=== PATIENT | male | born 1980 | race Caucasian/White ===

== ENCOUNTER 2022-03-29 10:17 | Emergency (ER) | payer OTHER ==
[2022-03-29 11:48] LABS: #Eosinphils 0.3 10x3/uL (0.0-0.5); #Monocytes 0.6 10x3/uL (0.0-1.1); #Neutrophils 5.2 10x3/uL (1.5-8.4); %Basophils 0.5 % (0.0-2.0); %Eosinophils 3.3 % (0.0-6.0); %Lymphocytes 20.6 % (18.0-47.0); %Monocytes 7.5 % (0.0-10.0); %Neutrophils 67.8 % (40.0-75.0); Hemoglobin 14.8 g/dL (13.5-17.5); Mean Corpuscular HGB CONC 34.6 g/dL (32.0-36.0); Mean Corpuscular Hemoglobin 30.1 pg (27.0-33.0); Mean Platelet Volume 9.7 fl (7.4-10.4); Platelet Count 258 10x3/uL (150-450); RBC Distribution Width 12.8 % (11.5-14.5); Red Blood Cell (RBC) Count 4.92 10x6/uL (4.32-5.72); White Blood Cell (WBC) Count 7.6 10x3/uL (3.5-10.5)
[2022-03-29 11:55] LABS: ALT (SGPT) 26 U/L (8-55); AST (SGOT) 21 U/L (5-34); Albumin 4.3 g/dL (3.5-5.0); Alkaline Phosphatase 62 U/L (40-110); Anion Gap 15 mmol/L (10-20); BUN (Urea Nitrogen) 14 mg/dL (8.9-20.6); Bilirubin, Total 0.8 mg/dL (0.2-1.2); Calc. Creatinine Clearance 0 mL/min (70-130); Calcium 9.8 mg/dL (7.8-10.44); Carbon Dioxide 23 mmol/L (22-29); Chloride 105 mmol/L (98-107); Estimated GFR 110; Globulin 3.4 g/dL (2.4-3.5); Glucose 93 mg/dL (70-105); Potassium 4.2 mmol/L (3.5-5.1); Protein, Total 7.7 g/dL (6.0-8.3); Sodium 139 mmol/L (136-145)
[2022-03-29] MEDS ORDERED: Iopamidol 300 61% 100 ML VIAL FS ONE (15:11)
== END 2022-03-29 13:25 | disposition home or self-care (01) ==
LOC: CSHERS 10:17
DX: J02.9 Acute pharyngitis, unspecified (principal)
CPT/HCPCS: 70491; 80053; 85025; Q9967

== ENCOUNTER 2024-02-28 07:29 | Emergency (ER) | payer OTHER ==
[2024-02-28] MEDS ORDERED: Ondansetron PF 4 MG/2 ML Vial ONE (07:58)
[2024-02-28] MEDS ORDERED: Glucagon 1 MG/ML KIT ONE (07:59)
[2024-02-28 10:33] LABS: #Basophils 0.02 10x3/uL (0.0-0.2); #Eosinophils 0.23 10x3/uL (0.0-0.5); #Monocytes 0.54 10x3/uL (0.0-1.1); #Neutrophils 3.69 10x3/uL (1.5-8.4); %Basophils 0.3 % (0.0-2.0); %Eosinophils 3.6 % (0.0-6.0); %Lymphocytes 28.4 % (18.0-47.0); %Monocytes 8.6 % (0.0-10.0); %Neutrophils 58.5 % (40.0-75.0); Hematocrit 44.6 % (38.8-50.0); Hemoglobin 14.4 g/dL (13.5-17.5); Mean Corpuscular HGB CONC 32.3 g/dL (32.0-36.0); Mean Corpuscular Hemoglobin 28.6 pg (27.0-33.0); Mean Corpuscular Volume 88.5 fL (81.2-95.1); Mean Platelet Volume 9.2 fL (7.4-10.4); Platelet Count 265 10x3/uL (150-450); RBC Distribution Width 13.2 % (11.5-14.5); Red Blood Cell (RBC) Count 5.04 10x6/uL (4.32-5.72); White Blood Cell (WBC) Count 6.3 10x3/uL (3.5-10.5)
[2024-02-28 10:46] LABS: ALT (SGPT) 31 U/L (8-55); AST (SGOT) 27 U/L (5-34); Alkaline Phosphatase 64 U/L (40-110); Anion Gap 12 mmol/L (10-20); BUN (Urea Nitrogen) 19 mg/dL (8.9-20.6); Bilirubin, Total 0.6 mg/dL (0.2-1.2); Calc. Creatinine Clearance 0 mL/min (70-130); Calcium 9.8 mg/dL (7.8-10.44); Carbon Dioxide 25 mmol/L (22-29); Chloride 108 mmol/L (98-107); Estimated GFR 108; Globulin 3.5 g/dL (2.4-3.5); Glucose 92 mg/dL (70-105); Potassium 5.6 mmol/L (3.5-5.1); Protein, Total 7.5 g/dL (6.0-8.3); Sodium 139 mmol/L (136-145)
[2024-02-28] MEDS ORDERED: PROPOFOL 40 ML ONE (15:30)
== END 2024-02-28 13:17 | disposition admitted as inpatient to this hospital (09) ==
LOC: CSHERS 07:29
PROC: 0DB58ZX Excision of Esophagus, Via Natural or Artificial Opening Endoscopic, Diagnostic (ICD-10-PCS; principal; 2024-02-28)
DX: R13.10 Dysphagia, unspecified (principal); K44.9 Diaphragmatic hernia without obstruction or gangrene; K21.00 Gastro-esophageal reflux disease with esophagitis, without bleeding; K22.10 Ulcer of esophagus without bleeding; E66.01 Morbid (severe) obesity due to excess calories; Z79.899 Other long term (current) drug therapy
CPT/HCPCS: 36415; 71045; 80053; 85025; 88305; 88312; 96374; 96375; J1611; J2405; J2704